=== PATIENT | female | born 1995 | race African-American/Black ===

== ENCOUNTER 2019-02-01 20:58 | Emergency (ER) | payer OTHER ==
[2019-02-01] MEDS ORDERED: IBUPROFEN 800 MG TABLET PO STA (21:17)
[2019-02-01] MEDS ORDERED: HYDROcod/ACETAM 5/325 MG TABLET PO STA (21:17)
--- NOTE | 2019-02-01 21:20 | ED Physician Documentation ---
History of Present Illness - Stated complaint Stated Complaint: FLU SYMPTOMS - Chief complaint Chief Complaint: General - History obtained from History obtained from: Patient - History of Present Illness Timing: Yesterday (Previously healthy 23-year-old woman became sick yesterday with sore throat followed by sneezing, body aches and myalgias, headache with light sensitivity but no neck stiffness. She denies nausea or diarrhea. No sick contacts. No recent travel. No possibility of .) Review of Systems Constitutional: reports: Fever, Chills, Myalgias, Fatigue Ears: denies: Ear pain Nose: reports: Rhinorrhea / runny nose, Congestion, Sinus pressure / pain Throat: reports: Sore throat GI: denies: Nausea, Vomiting, Diarrhea PD PAST MEDICAL HISTORY - Past Medical History Past Medical History: No - Past Surgical History Past Surgical History: No - Present Medications Home Medications: Ambulatory Orders Medication Instructions Recorded Confirmed Hydrocodone/Acetaminophen 1 - 2 each PO Q6H PRN #7 tablet 02/01/19 [Hydrocodon-Acetaminophen 5-325] Ibuprofen [Motrin] 800 mg PO Q8H PRN #20 tablet 02/01/19 - Allergies Allergies/Adverse Reactions: Allergies Allergy/AdvReac Type Severity Reaction Status Date / Time No Known Drug Allergies Allergy Verified 02/01/19 21:10 - Social History Does the pt smoke?: Yes Smoking Status: Current every day smoker Does the pt drink ETOH?: No Does the pt have substance abuse?: No - Immunizations Immunizations are current?: Yes - POLST Patient has POLST: No PD ED PE NORMAL - Vitals Vital signs reviewed: Yes - General General: Alert and oriented X 3, No acute distress - HEENT HEENT: PERRL, EOMI, Ears normal, Pharynx benign - Neck Neck: Supple, no meningeal sign, No bony TTP - Cardiac Cardiac: RRR, No murmur - Respiratory Respiratory: No respiratory distress, Clear bilaterally - Abdomen Abdomen: Normal bowel sounds, Soft, Non tender - Back Back: No CVA TTP, No spinal TTP - Derm Derm: Normal color, Warm and dry, No rash - Neuro Neuro: Alert and oriented X 3, Normal speech Results - Vitals Vitals: Vital Signs - 24 hr 02/01/19 21:03 Temperature 37.5 C Heart Rate 120 H Respiratory 16 Rate Blood Pressure 108/73 O2 Saturation 97 Oxygen O2 Source Room air - Labs Labs: Laboratory Tests 02/01/19 02/01/19 21:16 21:16 Influenza A (Rapid) Negative Influenza B (Rapid) Negative Group A Strep Rapid Negative PD MEDICAL DECISION MAKING - ED course ED course: This is a 23-year-old woman with flulike illness, prominent sore throat. Flu and strep swabs sent and treated with ibuprofen and hydrocodone. Departure - Departure Disposition: Home, Self Care Clinical Impression: Viral syndrome Condition: Good Record reviewed to determine appropriate education?: Yes Instructions: ED Viral Syndrome Prescriptions: Hydrocodone/Acetaminophen [Hydrocodon-Acetaminophen 5-325] 1 - 2 each PO Q6H PRN #7 tablet PRN Reason: pain Ibuprofen [Motrin] 800 mg PO Q8H PRN #20 tablet PRN Reason: PAIN &/OR FEVER Comments: Your strep and flu swabs are negative suggesting that your current symptoms are due to a virus other than influenza. Given the symptoms though it seems like a virus that is closely related to influenza. There is no specific cure for this, and needs to run its course, he should be better over the next few days. Rest plenty and drink plenty of fluids. Return for new or worsening symptoms. Or if not better in about 3 days.
[2019-02-01] MEDS ORDERED: HYDROcod/ACET 5/325 Prepack 4 PO STA (21:41)
[2019-02-01 21:52] VITALS: BP 114/82
== END 2019-02-01 21:52 | disposition home or self-care (01) ==
LOC: ED 20:58
DX: B34.9 Viral infection, unspecified (principal); F17.200 Nicotine dependence, unspecified, uncomplicated
CPT/HCPCS: 87070; 87275; 87276; 87430; 99283; A9270

== ENCOUNTER 2019-05-07 | Emergency (ER) | payer OTHER | END 2019-05-07 16:21 | disposition home or self-care (01) | DX: O26.891 Other specified pregnancy related conditions, first trimester (principal); R10.2 Pelvic and perineal pain; K21.9 Gastro-esophageal reflux disease without esophagitis; F17.200 Nicotine dependence, unspecified, uncomplicated; Z3A.12 12 weeks gestation of pregnancy | CPT/HCPCS: 36415; 76801; 80053; 81025; 83690; 84702; 85025; 86900; 86901; 99283; 99284; A9270; 81001; 81003; 87086 ==

== ENCOUNTER 2019-05-21 19:23 | Emergency (ER) | payer OTHER ==
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
[2019-05-21 20:35] VITALS: BP 115/80
== END 2019-05-21 20:39 | disposition home or self-care (01) ==
LOC: ED 19:23
DX: O99.89 Other specified diseases and conditions complicating pregnancy, childbirth and the puerperium (principal); R10.30 Lower abdominal pain, unspecified; Z3A.17 17 weeks gestation of pregnancy; Z87.891 Personal history of nicotine dependence
CPT/HCPCS: 99281; 99284

== ENCOUNTER 2019-06-05 16:06 | Emergency (ER) | payer OTHER ==
[2019-06-05 16:14] VITALS: BP 115/85
--- NOTE | 2019-06-05 16:33 | ED Physician Documentation ---
History of Present Illness - Stated complaint Stated Complaint: BABY NOT MOVING/16 WKS - Chief complaint Chief Complaint: General - History obtained from History obtained from: Patient - History of Present Illness Timing: Other (G1 at 16 weeks. She felt like she started to feel the baby move last week but then it stopped a few days ago. No cramping or bleeding. No fluid loss.) Review of Systems Constitutional: reports: Reviewed and negative Cardiac: reports: Reviewed and negative Respiratory: reports: Reviewed and negative PD PAST MEDICAL HISTORY - Past Medical History Cardiovascular: None Respiratory: None Neuro: None Endocrine/Autoimmune: None GI: Chronic constipation TOOTH POLISHER: None : None HEENT: None Psych: None Musculoskeletal: None Derm: None - Past Surgical History Past Surgical History: No - Present Medications Home Medications: Ambulatory Orders Medication Instructions Recorded Confirmed Hydrocodone/Acetaminophen 1 - 2 each PO Q6H PRN #7 tablet 02/01/19 [Hydrocodon-Acetaminophen 5-325] Ibuprofen [Motrin] 800 mg PO Q8H PRN #20 tablet 02/01/19 Famotidine 20 mg PO DAILY #30 tablet 05/07/19 Ondansetron Odt [Zofran] 4 mg TL Q6H PRN #10 tablet 05/07/19 Vitamin [Trinatal Rx 1] 1 each PO DAILY #30 tablet 05/07/19 - Allergies Allergies/Adverse Reactions: Allergies Allergy/AdvReac Type Severity Reaction Status Date / Time No Known Drug Allergies Allergy Verified 05/07/19 13:04 - Social History Does the pt smoke?: No Smoking Status: Former smoker Does the pt drink ETOH?: No Does the pt have substance abuse?: No - Immunizations Immunizations are current?: Yes - POLST Patient has POLST: No PD ED PE NORMAL - Vitals Vital signs reviewed: Yes - General General: Alert and oriented X 3, No acute distress - Abdomen Abdomen: Normal bowel sounds, Soft, Non tender - Female Female : Other (Bedside ultrasound demonstrates single live intrauterine with positive motion and a heart rate of 136.) - Neuro Neuro: Alert and oriented X 3, Normal speech Results - Vitals Vitals: Vital Signs - 24 hr 06/05/19 16:12 Temperature 36.6 C Heart Rate 71 Respiratory 18 Rate Blood Pressure 115/85 H O2 Saturation 100 Oxygen O2 Source Room air Departure - Departure Disposition: 01 Home, Self Care Clinical Impression: Qualifiers: Weeks of gestation: 16 weeks Qualified Code(s): Z3A.16 - 16 weeks gestation of Condition: Good Record reviewed to determine appropriate education?: Yes Instructions: ED Care, ED Preg Established Normal Sxs
== END 2019-06-05 16:40 | disposition home or self-care (01) ==
LOC: ED 16:06
DX: O36.8120 Decreased fetal movements, second trimester, not applicable or unspecified (principal); Z3A.16 16 weeks gestation of pregnancy
CPT/HCPCS: 99281; 99282

== ENCOUNTER 2019-06-20 17:10 | Outpatient (CLI) | payer OTHER | END 2019-06-20 17:11 | disposition EMS.NT | LOC: EMS 17:10 | PROVIDERS: ATTEND Surgery | DX: Z03.89 Encounter for observation for other suspected diseases and conditions ruled out (principal) ==

== ENCOUNTER 2019-11-01 17:48 | Outpatient (CLI) | payer OTHER ==
[2019-11-01 18:00] VITALS: BP 128/87
--- NOTE | 2019-11-01 18:51 | PROCEDURE REPORT ---
- HPI Diagnosis/Indication for NST: Decreased movement Current EDU 11/21/19 Gestation 37 Weeks and 1 Days 1 Para 0 Vital Signs Temperature 36.9 C 11/01/19 17:58 Heart Rate 62 11/01/19 17:58 Respiratory Rate 20 11/01/19 17:58 Blood Pressure 128/87 H 11/01/19 17:58 O2 Saturation 100 11/01/19 17:58 Temperature 36.9 C 11/01/19 17:58 Heart Rate 62 11/01/19 17:58 Respiratory Rate 20 11/01/19 17:58 Blood Pressure 128/87 H 11/01/19 17:58 O2 Saturation 100 11/01/19 17:58 - NST Procedure NST Procedure Start Date 11/01/19 Start Time 17:55 Vibroacoustic Stimulation Used No Patient States Movement Yes: decreased x24 hrs - Results and Plan Findings/Impression: 130 ACCELERATIONS REACTIVE Plan: pT TO GO TO ED FOR PULMONARY EVALUATION
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
== END 2019-11-01 18:46 | disposition home or self-care (01) ==
LOC: WFO 17:48 → FBP 17:52 → WFO 18:46
PROVIDERS: ATTEND Obstetrics & Gynecology
DX: O36.8130 Decreased fetal movements, third trimester, not applicable or unspecified (principal); O99.513 Diseases of the respiratory system complicating pregnancy, third trimester; J06.9 Acute upper respiratory infection, unspecified; Z3A.37 37 weeks gestation of pregnancy

== ENCOUNTER 2019-11-01 18:49 | Emergency (ER) | payer OTHER ==
[2019-11-01 18:58] VITALS: BP 104/54
--- NOTE | 2019-11-01 19:10 | ED Physician Documentation ---
History of Present Illness - Stated complaint Stated Complaint: COUGH/COLD SYMPTOMS - Chief complaint Chief Complaint: Heent - History obtained from History obtained from: Patient (The patient is a very pleasant 24-year-old female who presents with a chief complaint of cough and cold-like symptoms Without fever that started 2 days ago. She describes sneezing and itchy eyes and a runny nose a mild sore throat and a mild cough.She is a G1, P0 at 37 weeks she was seen by labor and delivery prior to my evaluating this patient and she reports that she had a normal nonstress test she reports the baby is moving well she denies any sudden leakage of fluid or vaginal bleeding or lower extremity swelling or scotomas or headaches or fevers. She reports a nonproductive cough.The patient reports she is up-to-date on all of her immunizations.) Review of Systems Ten Systems: 10 systems reviewed and negative Constitutional: reports: Reviewed and negative Eyes: reports: Reviewed and negative Ears: reports: Reviewed and negative, Other (Ear pressure without drainage, Denies hearing loss) Nose: reports: Rhinorrhea / runny nose, Congestion Throat: reports: Other (Itchy throat) Cardiac: reports: Reviewed and negative Respiratory: reports: Reviewed and negative, Other (Occasional cough). denies: Dyspnea, Wheezing GI: reports: Reviewed and negative. denies: Abdominal Pain, Nausea, Vomiting, Constipation, Diarrhea : reports: Reviewed and negative. denies: Dysuria, Hematuria, Discharge, Vaginal bleeding Skin: reports: Reviewed and negative. denies: Rash Musculoskeletal: reports: Reviewed and negative. denies: Neck pain Neurologic: reports: Reviewed and negative Psychiatric: reports: Reviewed and negative Endocrine: reports: Reviewed and negative Immunocompromised: reports: Reviewed and negative PD PAST MEDICAL HISTORY - Past Medical History Cardiovascular: None Respiratory: None Neuro: None Endocrine/Autoimmune: None GI: Chronic constipation COMMERCIAL COUNSEL: None : None HEENT: None Psych: None Musculoskeletal: None Derm: None - Past Surgical History Past Surgical History: No - Present Medications Home Medications: Ambulatory Orders Medication Instructions Recorded Confirmed Vitamin [Trinatal Rx 1] 1 each PO DAILY #30 tablet 05/07/19 - Allergies Allergies/Adverse Reactions: Allergies Allergy/AdvReac Type Severity Reaction Status Date / Time No Known Drug Allergies Allergy Verified 11/01/19 18:58 - Social History Does the pt smoke?: No Smoking Status: Former smoker Does the pt drink ETOH?: No Does the pt have substance abuse?: No - Immunizations Immunizations are current?: Yes - POLST Patient has POLST: No PD ED PE NORMAL - Vitals Vital signs reviewed: Yes - General General: Alert and oriented X 3, No acute distress - HEENT HEENT: PERRL, Other (Tympanic membranes are clear bilaterally external auditory canals are clear bilaterally there is no discharge she has an abnormal Valsalva bilaterally tympanic membranes are intact there is no erythema or swelling of the tympanic membranes bilaterally oropharynx is clear without exudates the uvula is midlineThere is no anterior posterior cervical lymphadenopathy the trachea is midline there is no JVD and no carotid bruits.) - Neck Neck: Supple, no meningeal sign - Cardiac Cardiac: RRR, No murmur - Respiratory Respiratory: No respiratory distress, Clear bilaterally - Abdomen Abdomen: Normal bowel sounds, Soft, Non tender, Non distended - Derm Derm: Warm and dry - Extremities Extremities: No deformity - Neuro Neuro: Alert and oriented X 3 - Psych Psych: Normal mood, Normal affect Results - Vitals Vitals: Vital Signs - 24 hr 11/01/19 18:55 Temperature 36.5 C Heart Rate 91 Respiratory 18 Rate Blood Pressure 104/54 L O2 Saturation 100 Oxygen O2 Source Room air PD MEDICAL DECISION MAKING - ED course Complexity details: other (I had an extensive discussion with the patient regarding her evaluation she has no signs of strep pharyngitis or pneumonia or influenza history and physical are consistent with viral syndrome. Given the fact that she is 37 weeks gravid I would recommend that if she does have pain or fevers that she would take acetaminophen and close follow-up and hydrate well.She should return to the emergency department with any concerns.) Departure - Departure Disposition: Home, Self Care Clinical Impression: URI (upper respiratory infection) Qualifiers: URI type: unspecified viral URI Qualified Code(s): J06.9 - Acute upper respiratory infection, unspecified Condition: Good Instructions: Cold Virus Follow-Up: YOUR,DOCTOR ON SUNDAY [Other]
== END 2019-11-01 19:30 | disposition home or self-care (01) ==
LOC: ED 18:49
DX: O99.513 Diseases of the respiratory system complicating pregnancy, third trimester (principal); J06.9 Acute upper respiratory infection, unspecified; Z3A.37 37 weeks gestation of pregnancy; Z87.891 Personal history of nicotine dependence
CPT/HCPCS: 99282; 99283

== ENCOUNTER 2019-11-16 08:40 | Outpatient (CLI) | payer OTHER | END 2019-11-16 08:41 | disposition critical access hospital (66) | LOC: EMS 08:40 | PROVIDERS: ATTEND Surgery | DX: O99.89 Other specified diseases and conditions complicating pregnancy, childbirth and the puerperium (principal) | CPT/HCPCS: A0425; A0429 ==

== ENCOUNTER 2019-11-16 09:00 | Inpatient (IN) | payer OTHER ==
[2019-11-16] MEDS ORDERED: SODIUM CHLORIDE FLUSH 0.9% 10 ML SYRINGE IVP PRN (09:25)
[2019-11-16] MEDS ORDERED: OXYTOCIN 10 UNIT/ML VIAL IM ONE (09:27)
[2019-11-16] MEDS ORDERED: LACTATED RINGERS 1,000 ML IV SCH (10:00)
--- NOTE | 2019-11-16 10:02 | DELIVERY NOTE ---
Delivery Note - Labor Labor: positive: Spontaneous - Delivery Method Delivery Method: positive: Spontaneous vaginal delivery - Presentation Presentation: positive: Vertex - Nuchal Cord Nuchal Cord: positive: None - Anesthetic Anesthetic Type: - Amniotic Fluid Description Amniotic Fluid Description: positive: Clear - Episiotomy Type Episiotomy Type: positive: None - Laceration Laceration: positive: Periurethral (bilat), Other (small superficial laceration between hymenal ring and skin 6:00) - Suture Suture Type: positive: Other (Lacerations superficial ; repair not neeeded) - Delivery Outcome Delivery Outcome: positive: Livebirth - [place]te: positive: Placed in direct skin contact with mother, Stimulated, Warmed, [place] used sex: positive: Male - Cord Cord: positive: 3 vessels - Placenta Placenta: positive: Intact - Estimated Blood Loss Estimated Blood Loss (in cc): 120 - Post Delivery Events Post Delivery Events: positive: No post delivery events - Delivery Comments (Free Text/Narrative) Delivery Comments (Free Text/Narrative): Patient presented via ambulance with SROM clear, labor, and desire to push. FHTs normal range. Patient was needing to squirm and change positions frequently due to labor urges and so IV not placed and toco not performed and FHT difficult to obtain continuously. Was complete and started pushing. Pain between contractions treated with nitrox. Pushed about 30min to deliver OA, uncomplicated. IM pitocin given. Fundus firm and 2cm below the umbilicus. Apgars 9/9. Need to obtain records from mobile crane operator--they have been requested. Otherwise anticipate routine course.
[2019-11-16] MEDS ORDERED: HYDROCORTISONE 1% CREAM 28 GM TUBE PR PRN (10:03)
[2019-11-16] MEDS ORDERED: WITCH HAZEL/GLYCERIN 1 PAD TOP PRN (10:03)
[2019-11-16] MEDS ORDERED: ONDANSETRON ODT 4 MG TABLET TL PRN (10:03)
--- NOTE | 2019-11-16 10:09 | HISTORY & PHYSICAL EXAMINATION ---
Admit History - Visit Reason Visit Reason: Contractions - : 1 Parity: 0 [place] Risk/History: positive: None Complications This : positive: None Smoking Status: Former smoker - Mother's Labs Mother's Blood Type: positive: Unknown Mother's RH: positive: Unknown GBS: positive: Other (Unknown) Rubella Status: positive: Unknown - Other Maternal History Other Maternal History: PMH neg; sickle cell trait PSH neg Allergies NKDA Meds PNV SH: FOB not involved, has support from sister who lives nearby. THC use 2x per week. Otherwise no tobacco, alcohol, or drugs. Runs a daycare center. FH: no anesthesia problems Meds/Allgy - Home Medications Home Medications: Ambulatory Orders Medication Instructions Recorded Confirmed Vitamin [Trinatal Rx 1] 1 each PO DAILY #30 tablet 05/07/19 - Allergies Allergies/Adverse Reactions: Allergies Allergy/AdvReac Type Severity Reaction Status Date / Time No Known Drug Allergies Allergy Verified 11/01/19 18:58 Review of Systems - Constitutional Constitutional: denies: Fever, Chills - Ears, Nose & Throat Ears, Nose & Throat: reports: Nasal discharge (felt like she had a mild URI) - Respiratory Respiratory: reports: Cough Physical - Abdominal Exam Vital Signs: aVSS - Presentation Presentation: positive: Vertex - Vaginal Exam Membranes: positive: Membranes ruptured Dilation (in cm): 9.5 Effacement (%): 100 Station: positive: 0 Plan for Labor - Plan For Labor I expect patient to be DC'd or transferred within 96 hours.: Yes Plan for Labor: 24yo P0 at 39w2d per her report of CARLOS A 11/21/19 presented by ambulance for active spontaneous labor, ready to push. Rapidly progressed to complete and had an uncomplicated vaginal delivery. Healthy mom. Baby appears SGA and so placenta sent and peds aware. Obtain records especially for labs, vaccinations, and BP hx.
[2019-11-16] MEDS: ACETAMINOPHEN 500 MG TABLET PO PRN ×2 (10:21→18:35)
[2019-11-16] MEDS: IBUPROFEN 600 MG TABLET PO SCH ×3 (10:21→21:33)
--- NOTE | 2019-11-16 15:05 | PROVIDER PROGRESS NOTE ---
Labor Progress Note - Labor Progress Note Labor Progress Note/Additional Text: record review: GBS neg Neg STI (HIV, HepB, RPR, GC/CT) A+, antibody neg RI and s/p Tdap 1h 79, Hct 35 Neg urine culture CARLOS A by 16w US (LMP unknown) = 11/26/2019 Anatomy scan: normal but heart suboptimally seen Quad screen neg Sickle cell carrier
[2019-11-16] MEDS: SIMETHICONE CHEW 80 MG TABLET PO SCH (16:02)
[2019-11-16] MEDS ORDERED: SODIUM CHLORIDE FLUSH 0.9% 10 ML SYRINGE IVP SCH (17:00)
[2019-11-16] MEDS: DOCUSATE SODIUM 100 MG CAPSULE PO SCH (21:33)
[2019-11-17] MEDS: ACETAMINOPHEN 500 MG TABLET PO PRN ×3 (03:32→20:01)
[2019-11-17] MEDS: IBUPROFEN 600 MG TABLET PO SCH ×3 (03:32→20:02)
[2019-11-17 05:37] LABS: BASOPHILS % (AUTO) 0.3 %; EOSINOPHILS % (AUTO) 0.5 %; HGB - HEMOGLOBIN 11.3 g/dL (12.0-16.0); LYMPHOCYTES % (AUTO) 19.2 %; MEAN CORPUSCULAR HEMOGLOBIN 29.4 pg (27.0-31.0); MEAN CORPUSCULAR HGB CONC 34.6 g/dL (32.0-36.0); MEAN CORPUSCULAR VOLUME 84.9 fL (81.0-99.0); MEAN PLATELET VOLUME 12.7 fL (7.9-10.8); MONOCYTES % (AUTO) 7.8 %; NEUTROPHILS % (AUTO) 71.9 %; PLT - PLATELET COUNT 125 10^3/uL (130-450); RED BLOOD COUNT 3.85 10^6/uL (4.20-5.40); RED CELL DISTRIBUTION WIDTH 13.2 % (12.0-15.0); WHITE BLOOD COUNT 10.4 x10^3/uL (4.8-10.8)
[2019-11-17 05:42] LABS: ABNORMAL LYMPHS % (MANUAL) 0 %; BAND NEUTROPHILS % (MANUAL) 0 %
[2019-11-17 06:03] LABS: EOSINOPHILS # (MANUAL) 0.1 10^3/uL (0-0.7); LYMPHOCYTES # (MANUAL) 2.5 10^3/uL (1.5-3.5); LYMPHOCYTES % (MANUAL) 24 %; MONOCYTES # (MANUAL) 0.7 10^3/uL (0.0-1.0); RBC MORPHOLOGY (MULTIPLE) NORMAL APPEARANCE (NORMAL)
[2019-11-17 06:05] LABS: PLATELET ESTIMATE, MANUAL DECREASED (<130,000) (NORMAL); PLATELET MORPHOLOGY NORMAL APPEARANCE (NORMAL)
[2019-11-17 06:06] LABS: DIFFERENTIAL COMMENT MANUAL DIFFERENTIAL
[2019-11-17] MEDS: SIMETHICONE CHEW 80 MG TABLET PO SCH ×4 (08:15→18:49)
[2019-11-17] MEDS: DOCUSATE SODIUM 100 MG CAPSULE PO SCH ×2 (10:12→20:03)
--- NOTE | 2019-11-17 17:53 | PROVIDER PROGRESS NOTE ---
Subjective - Subjective Subjective: Worried about baby's sugars and about her ability to produce enough milk for him. Eat, urinate well. No heavy VB. Pain is minimal. Mood is OK AVSS Alert, NAD Abd soft, nt/nd Fundus firm 2cm below U No LE c/c/e Plts 125 A/P: P1 PPD #1 s/p at term of SGA . Encouraged her that she is doing all she can for sugars, recommended pumping whenever she needs to bottle feed. Plts 125, BPs normal, no HTN during the . CBC not able to be checked on admit as she came in wanting to push. Will watch BPs--likely just repeat plts at PP visit. Objective - Vital Signs/Intake & Output Vital Signs: Vital Signs x48h Temp Pulse Resp BP Pulse Ox 11/17/19 16:43 98.2 F 79 20 126/39 L 100 11/17/19 12:00 98.2 F 78 20 127/87 H 100 Intake & Output: Intake & Output 11/14/19 11/15/19 11/16/19 11/17/19 23:59 23:59 23:59 23:59 Output Total 800 Balance -800 - Lab Results Fish Bones: 11/17/19 05:32 Other Labs: Lab Results x24hrs 11/17/19 Range/Units 05:32 WBC 10.4 (4.8-10.8) x10^3/uL RBC 3.85 L (4.20-5.40) 10^6/uL Hgb 11.3 L (12.0-16.0) g/dL Hct 32.7 L (37.0-47.0) % MCV 84.9 (81.0-99.0) fL MCH 29.4 (27.0-31.0) pg MCHC 34.6 (32.0-36.0) g/dL RDW 13.2 (12.0-15.0) % Plt Count 125 L (130-450) 10^3/uL MPV 12.7 H (7.9-10.8) fL Neut # (Auto) Not Reportable Lymph # (Auto) Not Reportable Millard # (Auto) Not Reportable Eos # (Auto) Not Reportable Baso # (Auto) Not Reportable Absolute Nucleated RBC Not Reportable Total Counted 100 Band Neuts % (Manual) 0 (0 - 10) % Abnorm Lymph % (Manual) 0 % Nucleated RBC % Not Reportable Neutrophils # (Manual) 7.1 H (1.5-6.6) 10^3/uL Lymphocytes # (Manual) 2.5 (1.5-3.5) 10^3/uL Monocytes # (Manual) 0.7 (0.0-1.0) 10^3/uL Eosinophils # (Manual) 0.1 (0-0.7) 10^3/uL Basophils # (Manual) 0.0 (0-0.1) 10^3/uL Differential Comment MANUAL DIFFERENTIAL WBC Morphology NORMAL APPEARANCE (NORMAL) Platelet Estimate DECREASED (<130,000) (NORMAL) Platelet Morphology NORMAL APPEARANCE (NORMAL) RBC Morph Micro Appear NORMAL APPEARANCE (NORMAL)
[2019-11-18] MEDS: ACETAMINOPHEN 500 MG TABLET PO PRN ×2 (03:37→12:11)
[2019-11-18] MEDS: IBUPROFEN 600 MG TABLET PO SCH ×3 (03:37→17:46)
[2019-11-18 05:32] LABS: BASOPHILS % (AUTO) 0.4 %; EOSINOPHILS # (AUTO) 0.1 10^3/uL (0.0-0.7); EOSINOPHILS % (AUTO) 1.6 %; HGB - HEMOGLOBIN 11.6 g/dL (12.0-16.0); LYMPHOCYTES # (AUTO) 2.6 10^3/uL (1.5-3.5); LYMPHOCYTES % (AUTO) 32.1 %; MEAN CORPUSCULAR HEMOGLOBIN 28.8 pg (27.0-31.0); MEAN CORPUSCULAR HGB CONC 33.7 g/dL (32.0-36.0); MEAN CORPUSCULAR VOLUME 85.4 fL (81.0-99.0); MEAN PLATELET VOLUME 12.2 fL (7.9-10.8); MONOCYTES # (AUTO) 0.5 10^3/uL (0.0-1.0); MONOCYTES % (AUTO) 6.2 %; NEUTROPHILS # (AUTO) 4.8 10^3/uL (1.5-6.6); NEUTROPHILS % (AUTO) 59.5 %; PLT - PLATELET COUNT 141 10^3/uL (130-450); RED BLOOD COUNT 4.03 10^6/uL (4.20-5.40); RED CELL DISTRIBUTION WIDTH 13.2 % (12.0-15.0)
[2019-11-18 05:46] LABS: URIC ACID 5.9 mg/dL (2.6-7.2)
[2019-11-18 06:45] LABS: CREATININE,URINE 89.1 mg/dL; PROTEIN/CREATININE RATIO,URINE 0.2 (<=0.2)
--- NOTE | 2019-11-18 09:11 | Discharge Plan ---
Discharge Plan Problem Reviewed?: Yes Disposition: Home, Self Care Condition: Good Diet: Cardiac Activity Restrictions: No Restrictions Shower Restrictions: No Additional Instructions or Follow Up instructions: 1. Buy a blood pressure cuff, take your BP twice a day, write down the numbers 2. Go to the ER right away if you have a severe headache, changes in your vision, upper abdominal pain, hallucinations, feeling of wanting to hurt yourself or others, "top" blood pressure number of 160 or higher, "bottom" blood pressure number of 100 or higher. 3. We will call you daily to check in about your blood pressures. Call [facility] if we have not called you that day. No Smoking: If you smoke, Please STOP! Call for help. Follow-up with: Claudio Hale MD [Provider Admit Priv/Credential] - 2 Weeks
[2019-11-18] MEDS: DOCUSATE SODIUM 100 MG CAPSULE PO SCH (09:29)
[2019-11-18 18:32] VITALS: BP 126/73
--- NOTE | 2019-11-18 18:34 | Labor Flowsheet ---
Labor Flowsheet Datetime Report Generated by CPN: 11/18/2019 18:33 Datetime: 11/17/2019 11:57 VITAL SIGNS NBP Sys/Preeti/Mean (mmHg): 127 : 87 : 94 Pulse: 85 Datetime: 11/16/2019 13:34 VAGINAL EXAM Membranes Ruptured Date/Time: 11/16/2019 08:30 Membranes Rupture Method: Spontaneous Amniotic Fluid Color: Clear Amniotic Fluid Amount: Moderate Amniotic Fluid Odor: Normal Datetime: 11/16/2019 10:03 SpO2 (%): 100 Datetime: 11/16/2019 09:35 UTERINE ACTIVITY Monitor Mode: External Frequency (min): 1-3 Quality: Strong Resting Tone (Palpate): Relaxed ASSESSMENT A Monitor Mode: External US FHR Baseline Rate : 115 Comments: mother pushing with each ctx, frequent position changes, adjust EFM freqeuntly, ctx q1-3 and strong on palpation, toco off mother
--- NOTE | 2019-11-18 20:37 | DISCHARGE SUMMARY ---
Physician: Bell Cochran MD DATE OF ADMISSION: 11/16/2019 DATE OF DISCHARGE: 11/18/2019 ADMITTING DIAGNOSES: Active spontaneous labor at term. DISCHARGE DIAGNOSES 1. Status post spontaneous vaginal delivery at term. 2. Gestational hypertension. OPERATIONS AND PROCEDURES: On 11/16/2019 spontaneous vaginal delivery of a liveborn male. He was small for gestational age, weighing under 6 pounds. Apgars were 9 at one minute and 9 at five minutes. ESTIMATED BLOOD LOSS: Normal. HOSPITAL COURSE: Patient presented to the hospital via ambulance wanting to push. She was complete shortly thereafter and pushed effectively to deliver her son. He was small for gestational age, which was a surprise. He received blood sugar monitoring and it took a while to stabilize his blood sugars. His weight was stable. He passed a car seat test prior to discharge. Patient's care had been with the [facility] midwives. As her labor was so quick. She presented to our hospital by ambulance. Her records were obtained and her labs were unremarkable. Patient developed gestational hypertension with labile blood pressure, seen at 24 and 48 hours . The blood pressures were never in the severe range. She did not have any other signs of preeclampsia. She did not have any headache, visual changes, or upper abdominal pain. Her protein to creatinine ratio was 0.2. Her AST was slightly elevated as well as her uric acid, but her platelets were normal. DISCHARGE INSTRUCTIONS: Routine instructions were given. Patient was counseled that she does have a variant of gestational hypertension and that this can worsen . If she does have headache, visual changes, or upper abdominal pain, systolic blood pressure of 160 or higher, or diastolic blood pressure of 100 or higher, she needs to go emergently to the emergency room. She was advised to buy a blood pressure cuff and check her blood pressures b.i.d. My office will be calling her daily to check in with her about her blood pressures. She was counseled that she is at high risk for elevated blood pressure later in life and that she needs to continue getting annual blood pressure checks and the minimum. DISCHARGE MEDICATIONS: 1. Colace p.r.n. to soften stool. 2. Continue vitamins. 3. Ibuprofen p.r.n. pain. DISCHARGE: Home. CONDITION: Good. FOLLOWUP: In 1 week. OUTSTANDING STUDIES: Placental pathology sent due to her SGA infant. TD: 11/18/2019 20:00 LUISITO
== END 2019-11-18 18:30 | disposition home or self-care (01) | DRG 806 ==
LOC: WFO 09:00 → FBP 09:01 → WFO 09:24 → FBP 09:25
PROVIDERS: ADMIT Obstetrics & Gynecology; ATTEND Obstetrics & Gynecology
PROC: 10E0XZZ Delivery of Products of Conception, External Approach (ICD-10-PCS; principal; 2019-11-16)
DX: O99.02 Anemia complicating childbirth (principal); O99.324 Drug use complicating childbirth; Z37.0 Single live birth; D57.3 Sickle-cell trait; F12.90 Cannabis use, unspecified, uncomplicated; O13.5 Gestational [pregnancy-induced] hypertension without significant proteinuria, complicating the puerperium; O71.82 Other specified trauma to perineum and vulva; Z3A.39 39 weeks gestation of pregnancy; Z87.891 Personal history of nicotine dependence
CPT/HCPCS: 36415; 82570; 83615; 84156; 84450; 84550; 85025; 85384; A9270; 99213

== ENCOUNTER 2023-04-30 09:03 | Outpatient (CLI) | payer MEDICAID ==
--- NOTE | 2023-04-30 13:32 | Ultrasound Report ---
LIMITED ULTRASOUND OF RIGHT BREAST: 04/30/2023 CLINICAL: Palpable right breast lump. No prior exams were available for comparison. Color flow ultrasound of the right breast 9-10 o'clock region was performed. Humphries scale images of th e real-time examination were reviewed. There is a 2.3 cm x 2.3 cm x 0.7 cm oval mass in the right breast at 10 o'clock in the retroareolar r egion 6 cm from the nipple. This correlates as palpated. Previous images from [facility] s howed this mass at 10:30 7cm from nipple measuring 2.2 x 1.0 x 1.9 cm, thus grossly unchanged. Sonogr aphic appearance is also similar. Benign biopsy was noted in 01/2019 ([facility]). IMPRESSION: BENIGN The 2.3 cm x 2.3 cm x 0.7 cm oval mass in the right breast is stable, assuming this is clinically the same mass that was palpable and biopsied in 2019. Sonographic location (10:00 vs. 10:30 and distance to nipple 6cm vs. 7cm) and size are grossly similar. Clinical correlation is necessary. Previous bio psy was benign. This exam was interpreted at Station ID: [id number]. Electronically Signed By: Herman Tejeda M.D. lc/:04/30/2023 10:09:05 Ultrasound BI-RADS: 2 Benign BI-RADS CATEGORY: (2) - 2 Unspecified - other recall n/a LATERALITY: (B)
== END 2023-04-30 09:04 | disposition home or self-care (01) ==
LOC: DI 09:03
PROVIDERS: ATTEND Nurse Practitioner
DX: N63.11 Unspecified lump in the right breast, upper outer quadrant (principal)